=== PATIENT | male | born 1970 | race Caucasian/White ===

== ENCOUNTER 2017-04-29 14:02 | Emergency (ER) | payer OTHER ==
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
[~2017-04-29 14:02] MED LIST: FLEXERIL10 MG PO; VOLTAREN75 MG PO
[2017-04-29] MEDS ORDERED: ALLEGRA (14:06)
== END 2017-04-29 15:15 | disposition home or self-care (01) ==
LOC: SED 14:02
DX: S06.0X9A Concussion with loss of consciousness of unspecified duration, initial encounter (principal); S13.4XXA Sprain of ligaments of cervical spine, initial encounter; S23.3XXA Sprain of ligaments of thoracic spine, initial encounter; S33.5XXA Sprain of ligaments of lumbar spine, initial encounter; V49.00XA Driver injured in collision with unspecified motor vehicles in nontraffic accident, initial encounter
CPT/HCPCS: 70450; 71020; 72125; 99284